=== PATIENT | male | born 1955 | race Caucasian/White ===

== ENCOUNTER 2019-02-15 03:46 | Inpatient (IN) | payer MEDICARE, OTHER ==
[~2019-02-15] VITALS: Ht 154.9 cm; Wt 68.0 kg
[~2019-02-15 03:46] MED LIST: HYDR473S47 PO; IBUP800T48 PO
[2019-02-15] MEDS ORDERED: SODIUM CHLORIDE 0.9% 1L BAG IV* STA (03:59)
--- NOTE | 2019-02-15 03:59 | ERD ---
ER Documentation Chief Complaint Chief Complaint fever x 2 days. had prostate biopsy 3 days ago, also c/o burning urination HPI The patient is a 63-year-old male, presenting to the ER because of fever and general body pain, dysuria, after he had a prostate biopsy 2 days ago. He denies headache, neck pain, chest pain, cough, dyspnea, abdominal pain, vomiting, diarrhea. He does not smoke nor drink Past medical history: Hypertension, chronic left lower extremity numbness Past surgical history: None ROS All systems reviewed and are negative except as per history of present illness. Medications Home Meds Active Scripts Ibuprofen* (Motrin*) 800 Mg Tab, 800 MG PO Q6H PRN for PAIN AND OR ELEVATED TEMP, #30 TAB Prov:WALLACE IRVIN MD 12/01/15 Hydrocodone/Homatropine Mbr* (Hycodan* Liq) 5 Ml Syrup, 5 ML PO Q4H PRN for COUGH, #4 OZ Prov:WALLACE IRVIN MD 12/01/15 Allergies Allergies: Coded Allergies: No Known Allergy (Unverified , 12/01/15) PMhx/Soc Hx Alcohol Use: No Hx Substance Use: No Hx Tobacco Use: No Physical Exam Vitals Vital Signs Date Temp Pulse Resp B/P (MAP) Pulse Ox O2 O2 Flow FiO2 Time Delivery Rate 02/15/19 101.4 04:25 02/15/19 102.2 101 20 150/88 96 03:51 (108) Physical Exam Const: No acute distress. Head: Atraumatic. Eyes: Normal Conjunctiva. ENT: Normal External Ears, Nose and Mouth. Neck: Full range of motion. No meningismus. Resp: Clear to auscultation bilaterally. Cardio: Regular rate and rhythm. Abd: Soft, non distended, normal bowel sounds, non tender. Skin: No petechiae or rashes. Back: No midline or flank tenderness. Ext: No cyanosis, or edema. Neur: Awake and alert. Minimal left lower extremity chronic weakness, no calf tenderness Psych: Normal Mood and Affect. Result Diagram: 02/15/19 0408 02/15/19 0407 Results 24 hrs Laboratory Tests Test 02/15/19 04:07 02/15/19 04:08 02/15/19 04:16 02/15/19 04:30 Prothrombin Time 13.4 Sec Prothrombin Time 1.0 Ratio INR 1.01 International Normalized Ratio Activated 26.5 Sec Partial Thrombop last Time Sodium Level 141 mmol/L Potassium Level 4.0 mmol/L Chloride Level 105 mmol/L Carbon Dioxide 25 mmol/L Level Anion Gap 11 Blood Urea 16 mg/dl Nitrogen Creatinine 0.87 mg/dl Est Glomerular > 60 mL/min Filtrat Rate mL/min Glucose Level 129 mg/dl Calcium Level 9.2 mg/dl Total Bilirubin 0.7 mg/dl Direct Bilirubin 0.00 mg/dl Indirect 0.7 mg/dl Bilirubin Aspartate Amino 32 IU/L Transf (AST/SGOT ) Alanine 35 IU/L Aminotransferase (ALT/SGPT) Alkaline 121 IU/L Phosphatase Troponin I < 0.012 ng/ml Total Protein 8.5 g/dl Albumin 4.5 g/dl Globulin 4.00 g/dl Albumin/Globulin 1.12 Ratio White Blood 12.8 10^3/ul Count Red Blood Count 4.41 10^6/ul Hemoglobin 14.1 g/dl Hematocrit 41.0 % Mean Corpuscular 93.0 fl Volume Mean Corpuscular 32.0 pg Hemoglobin Mean Corpuscular 34.4 g/dl Hemoglobin Mary [place] nt Red Cell 12.2 % Distribution Width Platelet Count 151 10^3/UL Mean Platelet 12.5 fl Volume Immature 0.300 % Granulocytes % Neutrophils % 79.4 % Lymphocytes % 11.0 % Monocytes % 8.8 % Eosinophils % 0.2 % Basophils % 0.3 % Nucleated Red 0.0 /100WBC Blood Cells % Immature 0.040 10^3/ul Granulocytes # Neutrophils # 10.2 10^3/ul Lymphocytes # 1.4 10^3/ul Monocytes # 1.1 10^3/ul Eosinophils # 0.0 10^3/ul Basophils # 0.0 10^3/ul Nucleated Red 0.0 10^3/ul Blood Cells # POC Venous 1.3 mmol/L Lactate Urine Color YELLOW Urine Clarity CLEAR Urine pH 5.0 Urine Specific 1.013 [place] Urine Ketones NEGATIVE mg/dL Urine Nitrite NEGATIVE mg/dL Urine Bilirubin NEGATIVE mg/dL Urine NEGATIVE mg/dL Urobilinogen Urine Leukocyte NEGATIVE Adali/ul Esterase Urine 2 /HPF Microscopic RBC Urine 15 /HPF Microscopic WBC Urine Hemoglobin 1+ mg/dL Urine Glucose NEGATIVE mg/dL Urine Total NEGATIVE mg/dl Protein Test 02/15/19 04:49 Bedside Urine pH 5.5 (LAB) Bedside Urine Negative Protein (LAB) Bedside Urine Negative Glucose (UA) Bedside Urine Negative Ketones (LAB) Bedside Urine Trace-intact Blood Bedside Urine Negative Nitrite (LAB) Bedside Urine Trace Leukocyte Estera se (L Current Medications Medications Dose Sig/Karen Start Time Status Last (Trade) Ordered Route PRN Stop Time Admin Dose Reason Admin Sodium 2,070 ml BOLUS OVER 2 02/15/19 Cancel Chloride HOURS STAT 03:59 (NS) IV* 02/15/19 04:00 650 mg ONCE ONCE 02/15/19 DC 02/15/19 Acetaminophen PO 04:30 04:25 (Tylenol 02/15/19 04:31 Tab) Ibuprofen 600 mg ONCE ONCE 02/15/19 (Motrin) PO 06:00 02/15/19 06:01 Sodium 2,070 ml @ BOLUS X1 02/15/19 Chloride 1,035 mls/hr ONCE IV 06:00 02/15/19 07:59 Piperacillin 100 ml @ ONCE ONCE 02/15/19 Sod/ 200 mls/hr IVPB 06:00 Tazobactam 02/15/19 06:29 Sod Procedures/[place] [id number] Radiology Main Line: [phone] DIAGNOSTIC IMAGING REPORT Patient: HOUSTON GODWIN : 1955 Age: 63 Sex: M MR #: [id number] DOS: 02/15/19 0359 Ordering MD: CORNELIA BRAXTON MD Location: E/R Room/Bed: PROCEDURE: CHEST - 1 VIEW CLINICAL INDICATION: 63-year-old male with shortness of breath and sepsis. TECHNIQUE: A single frontal AP portable view of the chest was performed. The images were reviewed on a PACS workstation. COMPARISON: None. FINDINGS: The cardiomediastinal silhouette is within normal limits. There is a shallow inspiration. There is no evidence for an infiltrate. There is no evidence for congestive heart failure. There is no evidence for pneumothorax. The osseous structures are intact. IMPRESSION: No evidence for active cardiopulmonary disease. .Siva Cao MD, Date Time Electronically viewed and signed by .Siva Cao MD, on 02/15/2019 05:42 .M/ CC: CORNELIA BRAXTON MD [phone] EKG: Read by emergency physician Rate/Rhythm: Normal Sinus Rhythm 89 beats/min QRS, ST, T-waves: No ST elevation, no T inversion Impression: Normal EKG MEDICAL MAKING DECISION: The patient is a 63-year-old male, presenting with acute SIRS. He has episodes of chills and tachycardic in the ER. He was treated with normal saline 30 mm/kg and Zosyn IV concerning for bacteremia, Motrin and Tylenol for fever The differential diagnoses considered include but are not limited to UTI, pneumonia, bacteremia, prostatitis Departure Diagnosis: Primary Impression: SIRS (systemic inflammatory response syndrome) Condition: Stable Comments I discussed the findings with the patient. I discussed the patient with Dr Larsen 5:45 am , who was made aware of the lab, the treatment, the patient condition. The patient is admitted to [facility] Disclaimer: Inadvertent spelling and grammatical errors are likely due to EHR/dictation software use and do not reflect on the overall quality of patient care. Also, please note that the electronic time recorded on this note does not necessarily reflect the actual time of the patient encounter. CORNELIA BRAXTON MD February 15, 2019 03:59
[2019-02-15] MEDS ORDERED: ACETAMINOPHEN 325 MG TAB PO ONE (04:30)
[2019-02-15] MEDS ORDERED: IBUPROFEN 600 MG TAB PO ONE (06:00)
[2019-02-15] MEDS ORDERED: SOD CHLORIDE 0.9% 2,070 ML IV ONE (06:00)
[2019-02-15] MEDS ORDERED: PIPER-TAZO 3.375 GM IV (PMX) 100 ML IVPB ONE (06:00)
[2019-02-15] MEDS ORDERED: ONDANSETRON 4 MG INJ IV PRN (09:30)
[2019-02-15] MEDS ORDERED: morphine 2 MG INJ IV PRN (09:30)
[2019-02-15 09:39] VITALS: BMI 24.9
[2019-02-15] MEDS ORDERED: ZOLPIDEM 5 MG TAB PO PRN (10:00)
[2019-02-15 11:17] VITALS: BP 121/76; PULSE 71; RESP 18
--- NOTE | 2019-02-15 11:38 | HP ---
DATE OF ADMISSION: 02/15/2019 ADMITTING DIAGNOSIS: Possible systemic inflammatory response syndrome with urinary tract infection. HISTORY OF PRESENT ILLNESS: The patient is a 63-year-old male with spina bifida, hypertension , gastroesophageal reflux disease who is status post prostate biopsy on 02/13/2019. The patient repo rts that he started having diffuse achiness, fevers and chills at home starting yesterday. The patie nt was taking Tylenol throughout yesterday and was having fevers upwards of 101 at home with palpitat ions and occasional shortness of breath. The patient initially had some bleeding with urination the first night and early yesterday, but has not had any blood since. Patient does have some burning wit h urination, has achiness particularly in the flank area and overall feels weak. REVIEW OF SYSTEMS: Palpitations, no nausea, no vomiting, no headache, no blurred vision. Mild light headedness. PAST MEDICAL HISTORY: Hypertension, spina bifida, gastroesophageal reflux disease, elevated PSA, sta tus post prostate biopsy 02/13/2019. PAST SURGICAL HISTORY: None. FAMILY HISTORY: Noncontributory. ALLERGIES: NONE. MEDICATIONS: 1. Omeprazole 20 mg daily. 2. Lisinopril 5 mg daily. 3. Flomax 0.4 mg daily. SOCIAL HISTORY: Patient is . No tobacco, no alcohol use. PHYSICAL EXAMINATION: VITAL SIGNS: Temperature 102.2 in the Emergency Room with a pulse of 101, respiratory rate 20, blood pressure 150/88, pulse oximetry of 96. Currently, the temperature is 99.8, pulse of 93, respiration s 17, blood pressure 127/80, oxygen saturation 97% on 2 liter nasal cannula oxygen. GENERAL: Well-developed, ill-appearing male in no acute distress, lying in bed. HEENT: EOMI, PERRLA. Oropharynx clear except for decreased mucus pooling. NECK: No jugular venous distention, 2+ carotid upstroke, no bruits. No lymphadenopathy, no thyromeg luis. LUNGS: Clear to auscultation bilaterally. HEART: Tachycardic, but regular. Normal S1, S2. No murmurs, gallops, rubs noted. ABDOMEN: Soft, nontender, normoactive bowel sounds. Mild obesity, no hepatosplenomegaly. No suprap ubic tenderness, no CVA tenderness. GENITOURINARY: Normal male. No masses. RECTAL: Deferred. EXTREMITIES: No cyanosis, clubbing or edema. NEUROLOGIC: Nonfocal. Midline back and lumbar spine, there is an approximately 8:10 cm tail-like fl eshy mass emanating from the lumbar spine. LABORATORY EXAMINATION: White blood cell count 12.8 with 79.4% neutrophils, hemoglobin 14.1, hematoc rit 41.0, platelets 151. Sodium 141, potassium 4.0, chloride 105, bicarbonate 25, BUN of 16, creatin ine 0.87, glucose 129. Lactic acid 2.8, calcium 9.2, total bilirubin 0.7, AST 32, ALT of 35, alkalin e phosphatase 121. Troponin less than 0.012. Total protein is 8.5, albumin 4.5. PT 13.4, INR 1.01, PTT of 26.5. Urinalysis shows pH of 5.5, no protein, no glucose, trace intact blood, negative nitri te, negative leukocyte esterase. There is leukocyte esterase trace positivity, 15 white blood cells, 2 red blood cells, 1+ hemoglobin. Chest x-ray is unremarkable. IMPRESSION: The patient is a 63-year-old male status post prostate biopsy on , now with fevers, chills, burning with urination, elevated white count and elevated lactic acid, tachycardia, lightheadedness. The patient is being admitted to the hospital for possible urinary tra ct infection with systemic inflammatory response syndrome. 1. Urinary tract infection with systemic inflammatory response syndrome. The patient will be placed on IV antibiotics with Zosyn 3.375 mg q.6h. Will await urine culture results and adjust as necessar y. We will also give IV fluid hydration with normal saline at 100 mL per hour. We will give p.r.n. pain medications with morphine and Tylenol or ibuprofen for fever and myalgias. Will also repeat a la ctic acid later today as well as a repeat white blood cell count and lactic acid tomorrow. 2. Hypertension. We will give routine lisinopril as well as p.r.n. hydralazine. 3. Gastroesophageal reflux disease. Will continue with diet and pantoprazole and replacement for hi s omeprazole. 4. Benign prostatic hypertrophy. We will give the patient Flomax as he took at home. Dictated By: RASHIDA URENA MD SR/NTS Conf#: [id number] DID#: [id number] CC: JET DUMONT MD;*EndCC*
[2019-02-15 12:01] VITALS: PULSE 73
[2019-02-15] MEDS: SOD CHLORIDE 0.9% 1,000 ML IV SCH ×2 (12:35→20:30)
[2019-02-15] MEDS: PANTOPRAZOLE (EC) 40 MG TAB PO SCH (12:36)
[2019-02-15] MEDS: LISINOPRIL 5 MG TAB GTB SCH (12:37)
[2019-02-15] MEDS: ACETAMINOPHEN 325 MG TAB PO PRN ×4 (12:47→22:56)
[2019-02-15] MEDS: PIPER-TAZO 3.375 GM IV (PMX) 100 ML IVPB SCH ×3 (12:50→23:43)
[2019-02-15 15:27] VITALS: BP 129/82; PULSE 72; RESP 18
[2019-02-15 16:01] VITALS: PULSE 71
[2019-02-15 19:34] VITALS: BP 163/85; PULSE 78; RESP 18
[2019-02-15 20:00] VITALS: PULSE 76
[2019-02-15] MEDS: TAMSULOSIN (SR) 0.4 MG CAP PO SCH (20:55)
[2019-02-16] VITALS (13 sets, daily range): BP systolic 102–121; BP diastolic 64–72; PULSE 43–71; RESP 17–18
[2019-02-16] MEDS: ACETAMINOPHEN 325 MG TAB PO PRN ×3 (02:54→17:31)
[2019-02-16] MEDS: PIPER-TAZO 3.375 GM IV (PMX) 100 ML IVPB SCH ×3 (05:45→17:30)
[2019-02-16] MEDS: SOD CHLORIDE 0.9% 1,000 ML IV SCH ×2 (05:45→17:31)
[2019-02-16] MEDS: PANTOPRAZOLE (EC) 40 MG TAB PO SCH (05:45)
[2019-02-16] MEDS: LISINOPRIL 5 MG TAB GTB SCH (08:37)
--- NOTE | 2019-02-16 11:56 | RADRPT ---
Vent Rate: 89 bpm RR Interval: 0 msec WA Interval: 162 msec QRS Duration: 74 msec QT Interval: 330 msec QTC Interval: 401 msec P-R-T [place]: 44 - 17 - 9 degrees Normal sinus rhythm Normal ECG Electronically Signed By: *[facility]
[2019-02-16] MEDS: IBUPROFEN 400 MG TAB GTB PRN ×2 (14:12→21:38)
--- NOTE | 2019-02-16 16:33 | PN ---
DATE: 02/16/2019 SUBJECTIVE: The patient is feeling better but still having some headache, but no more flank pain and no more chills. OBJECTIVE: VITAL SIGNS: Temperature 98.1 currently, T-max at 1:00 this morning was 99.6, pulse currently 63, re spirations 18, blood pressure 102/66, oxygen saturation 95% on room air. GENERAL: Well-developed, well-nourished male in no acute distress, lying in bed. LUNGS: Clear to auscultation bilaterally. HEART: Regular rate and rhythm. ABDOMEN: Soft, nontender, nondistended, mild obesity, normoactive bowel sounds. No CVA tenderness. EXTREMITIES: No cyanosis, clubbing or edema. NEUROLOGIC: Nonfocal. LABORATORY EXAMINATION: Shows white blood cell count of 15.1, hemoglobin 12.6, hematocrit 36.9, plat elets 116. Sodium is 138, potassium 3.8, chloride 109, bicarbonate 24, BUN 13, creatinine 0.87, gluc ose 111. Lactic acid 0.89. Magnesium 2.1, calcium 8.5. Blood cultures 1 out of 2 showing gram-nega tive rods. ASSESSMENT AND PLAN: 1. Urinary tract infection with systemic inflammatory response syndrome. The patient is now afebril e, but white blood cell count still elevated, but pulse rate is controlled and patient is feeling bet ter with no more fevers, chills. The patient does have gram-negative rods in 1 of 2 blood cultures w hich would be consistent with the patient's urine infection. White blood cell count is still elevate d and the patient is currently responding to antibiotics. We will wait for sensitivity and typing of the gram-negative rods, but continue current antibiotics with Zosyn, IV fluids and p.r.n. Tylenol, i buprofen and analgesics. 2. Hypertension, stable. Continue with meds and p.r.n. meds. 3. Headache, likely related to patient's infection. We will continue with p.r.n. analgesia and cont inue to treat the infection, but doubt other processes at hand. Dictated By: RASHIDA URENA MD SR/NTS Conf#: [id number] DID#: [id number] CC: JET DUMONT MD;*EndCC*
[2019-02-16] MEDS: TAMSULOSIN (SR) 0.4 MG CAP PO SCH (21:34)
[2019-02-17] VITALS (11 sets, daily range): BP systolic 102–181; BP diastolic 61–94; PULSE 51–78; RESP 18–20
[2019-02-17] MEDS: PIPER-TAZO 3.375 GM IV (PMX) 100 ML IVPB SCH ×4 (00:03→17:45)
[2019-02-17] MEDS: SOD CHLORIDE 0.9% 1,000 ML IV SCH ×3 (02:30→22:30)
[2019-02-17] MEDS: PANTOPRAZOLE (EC) 40 MG TAB PO SCH (05:50)
[2019-02-17] MEDS: LISINOPRIL 5 MG TAB GTB SCH (08:49)
--- NOTE | 2019-02-17 09:07 | PN ---
DATE: 02/17/2019 SUBJECTIVE: The patient is feeling better. No headache, no back pain, but did have some chills and sweats last night. OBJECTIVE: VITAL SIGNS: Temperature 98.0, pulse 54, respirations 20, blood pressure 139/83, oxygen saturation 96% on room air. GENERAL: Well-developed, well-nourished male in no acute distress, lying in bed. LUNGS: Clear to auscultation bilaterally. HEART: Regular rate and rhythm. ABDOMEN: Soft, nontender, nondistended, normoactive bowel sounds. EXTREMITIES: No cyanosis, clubbing or edema. LABORATORY DATA: Urine cultures show 50 to 60,000 gram-negative rods. Blood cultures x1 show gram-negative rods, but no typing or sensitivities yet. White blood cell count 7.2, hemoglobin 12.4, hematocrit 36.6, platelets 108. Sodium 144, potassium 3.9, chloride 114, bicarbonate 23, BUN of 13, creatinine 0.8, blood sugar 113. ASSESSMENT AND PLAN: 1. Urinary tract infection with Sepsis(POA): The patient continues to improve, with a normal white blood cell count, no more fevers or chills. The patient is improving clinically overall. We will continue IV antibiotics as the patient continues to remain weak and we will continue telemetry monitoring. The patient will be continued on IV antibiotics and we will adjust as needed and change to oral antibiotics prior to discharge. 2. Tachycardia, improved with hydration and controlling the infection. We will continue telemetry monitoring for now. 3. Hypertension, stable. Continue with medications and diet. 4. Gastroesophageal reflux disease, stable. Continue with medications. Dictated By: RASHIDA URENA MD SR/NTS Conf#: [id number] DID#: [id number] CC: JET DUMNOT MD;*EndCC* MTDD
[2019-02-17] MEDS: ACETAMINOPHEN 325 MG TAB PO PRN (15:17)
[2019-02-17] MEDS: TAMSULOSIN (SR) 0.4 MG CAP PO SCH (21:38)
[2019-02-17] MEDS: hydrALAzine 20 MG INJ IV PRN (21:39)
[2019-02-18] VITALS (10 sets, daily range): BP systolic 131–161; BP diastolic 77–94; PULSE 54–76; RESP 18–20
[2019-02-18] MEDS: PIPER-TAZO 3.375 GM IV (PMX) 100 ML IVPB SCH ×5 (00:07→23:59)
[2019-02-18] MEDS: IBUPROFEN 400 MG TAB GTB PRN ×3 (00:14→16:09)
[2019-02-18] MEDS: PANTOPRAZOLE (EC) 40 MG TAB PO SCH (05:42)
[2019-02-18] MEDS: SOD CHLORIDE 0.9% 1,000 ML IV SCH (05:43)
[2019-02-18] MEDS ORDERED: POTASSIUM CHLORIDE (SR) 20 MEQ TAB PO STA (08:19)
[2019-02-18] MEDS: LISINOPRIL 5 MG TAB GTB SCH (08:21)
[2019-02-18] MEDS: MULTIVITAMINS THERAPEUTIC TAB PO SCH (08:36)
--- NOTE | 2019-02-18 09:07 | PN ---
DATE: 02/18/2019 SUBJECTIVE: The patient complains of intermittent headache, still feeling very weak. No abdominal p ain. OBJECTIVE: VITAL SIGNS: Temperature 98.2, pulse 56, respirations 20, blood pressure 131/77, oxygen saturation 9 8%, blood pressure was as high as 180/91 earlier last night. LUNGS: Clear to auscultation bilaterally. HEART: Regular rate and rhythm. ABDOMEN: Soft, nontender, nondistended. NECK: Decreased range of motion. There is tenderness to palpation along the cervical spine. Otherw ise, nonfocal. EXTREMITIES: No cyanosis, clubbing or edema. LABORATORY DATA: White blood cell count 7.2, hemoglobin 12.7, hematocrit 37.0, platelets 136. Sodiu m 145, potassium 3.4, chloride 110, bicarbonate 25, BUN of 10, creatinine 0.82, glucose 107, calcium 8.7. Urine culture and blood culture both show E. coli sensitive to antibiotics. ASSESSMENT AND PLAN: 1. Urinary tract infection with sepsis. The patient continues to improve, but is not ready for disc harge to home. The patient continues to feel weak. We will continue with IV antibiotics, telemetry monitoring. 2. Hypertension/tachycardia. Tachycardia is improved. The patient with labile blood pressure. We will continue telemetry monitoring. Discontinue IV fluids and continue with blood pressure medicatio ns and p.r.n. 3. Gastroesophageal reflux disease, stable. Continue with medications. 4. Hypopotassemia. We will replace with 40 mEq with potassium chloride and recheck tomorrow includi ng magnesium. Dictated By: RASHIDA URENA MD SR/NTS Conf#: [id number] DID#: [id number] CC: JET DUMONT MD;*EndCC*
[2019-02-18] MEDS: ACETAMINOPHEN 325 MG TAB PO PRN ×2 (12:09→20:44)
[2019-02-18] MEDS: TAMSULOSIN (SR) 0.4 MG CAP PO SCH (20:42)
[2019-02-19] VITALS (11 sets, daily range): BP systolic 129–166; BP diastolic 77–90; PULSE 45–71; RESP 18–22
[2019-02-19] MEDS: IBUPROFEN 400 MG TAB GTB PRN ×3 (00:16→20:10)
[2019-02-19] MEDS: PANTOPRAZOLE (EC) 40 MG TAB PO SCH (05:35)
[2019-02-19] MEDS: PIPER-TAZO 3.375 GM IV (PMX) 100 ML IVPB SCH ×3 (05:35→19:49)
--- NOTE | 2019-02-19 08:37 | PN ---
DATE: 02/19/2019 SUBJECTIVE: The patient continues to complain of intermittent headaches and sweats, but otherwise no dysuria. No back pain, no chills. OBJECTIVE: VITAL SIGNS: Temperature 98.1, pulse 66 to 46, but asymptomatic, respirations 18, blood pressure 134/78 but earlier this morning was 166/90. The patient had a headache. LUNGS: Clear to auscultation bilaterally. HEART: Regular rate and rhythm but bradycardic. ABDOMEN: Soft, nontender, nondistended. EXTREMITIES: No cyanosis, clubbing or edema. NEUROLOGIC: Nonfocal. LABORATORY DATA: Sodium 144, potassium 4.0, chloride 111, bicarbonate 24, BUN 13, creatinine 0.81, glucose 140, magnesium 2.3, hemoglobin 12.3, hematocrit 36.2, white blood cell count 6.6, platelets 156. ASSESSMENT AND PLAN: 1. Urinary tract infection with sepsis. The patient continues to improve. We will continue IV antibiotics and change to oral medications at the time of discharge. 2. Tachycardia/hypertension. The patient continues to be hypertensive with intermittent headaches related to hypertension. We will adjust his lisinopril and change the threshold for the hydralazine as a p.r.n. The patient no longer with tachycardia and has asymptomatic bradycardia times. 3. Gastroesophageal reflux disease, stable. Continue with diet and medications. 4. Headache:pt with intermittent h/a of unknown etiol; may be related to htn vs other; if persists, will check CT brain Dictated By: RASHIDA URENA MD SR/NTS Conf#: [id number] DID#: [id number] CC: JET DUMONT MD;*EndCC* MTDD
[2019-02-19] MEDS: LISINOPRIL 20 MG TAB GTB SCH (09:43)
[2019-02-19] MEDS: MULTIVITAMINS THERAPEUTIC TAB PO SCH (09:43)
[2019-02-19] MEDS: ACETAMINOPHEN 325 MG TAB PO PRN ×2 (09:53→14:57)
[2019-02-19] MEDS: hydrALAzine 20 MG INJ IV PRN (10:59)
[2019-02-19] MEDS: TAMSULOSIN (SR) 0.4 MG CAP PO SCH (21:11)
[2019-02-20] VITALS (10 sets, daily range): BP systolic 147–159; BP diastolic 60–91; PULSE 51–79; RESP 18–19
[2019-02-20] MEDS: PIPER-TAZO 3.375 GM IV (PMX) 100 ML IVPB SCH ×5 (00:33→23:45)
[2019-02-20] MEDS: ACETAMINOPHEN 325 MG TAB PO PRN ×3 (00:50→21:58)
[2019-02-20] MEDS: PANTOPRAZOLE (EC) 40 MG TAB PO SCH (06:07)
[2019-02-20] MEDS: IBUPROFEN 400 MG TAB GTB PRN ×3 (06:17→19:29)
[2019-02-20] MEDS ORDERED: FUROSEMIDE 20 MG INJ IV ONE (08:30)
--- NOTE | 2019-02-20 08:40 | PN ---
DATE: 02/20/2019 SUBJECTIVE: The patient continues to complain of moderate to severe headache intermittently but a lo w grade all the time. Hurts with a range of motion of his neck as well. Otherwise without complaint . OBJECTIVE: VITAL SIGNS: Temperature 98.3, pulse 51 and regular, respirations 19, blood pressure is high as 166/ 80 yesterday, this morning 151/60 with an oxygen saturation 98%. GENERAL: Well-developed, well-nourished male in no acute distress. LUNGS: Clear to auscultation bilaterally. HEART: Regular rate and rhythm. NECK: Decreased range of motion in all directions with pain at extremes of range of motion. There i s tenderness to palpation along the cervical spine and in the occiput bilaterally. NEUROLOGIC: Nonfocal. ABDOMEN: Soft, nontender, normoactive bowel sounds. LABORATORY DATA: Sodium 143, potassium 3.8, chloride 110, bicarbonate 23, BUN 13, creatinine 0.77, g lucose 104, calcium 9.0. White blood cell count 8.4, hemoglobin 13.2, hematocrit 38.1, platelets [address] scan of the brain is unremarkable. ASSESSMENT AND PLAN: 1. UTI with sepsis. The patient continues to improve and will continue antibiotics IV 2. Headache. The patient continues to have moderate to severe headaches of unknown etiology. Likel y combination of cervical spondylosis strain along with hypertension. The patient's hypertension con tinues to be labile and the patient's medications were adjusted yesterday. The patient was receiving IV normal saline and his pressure increased while on that. Will give a dose of Lasix x1 today to ho pefully relieve some of the hypertension as well as headache and will continue telemetry monitoring, 3. Tachycardia/hypertension. Tachycardia is improved but hypertension remains labile. We will cont inue with the Lasix added today as well as the lisinopril increased yesterday and the p.r.n. hydralaz ine. 4. GERD, stable. Continue with medications. Dictated By: RASHIDA URENA MD SR/NTS Conf#: [id number] DID#: [id number] CC: JET DUMONT MD;*EndCC*
[2019-02-20] MEDS: MULTIVITAMINS THERAPEUTIC TAB PO SCH (09:21)
[2019-02-20] MEDS: LISINOPRIL 20 MG TAB GTB SCH (09:21)
[2019-02-20] MEDS: TAMSULOSIN (SR) 0.4 MG CAP PO SCH (21:58)
[2019-02-21] VITALS (10 sets, daily range): BP systolic 130–185; BP diastolic 74–94; PULSE 48–63; RESP 16–18; Ht 154.9 cm; Wt 68.0 kg
[2019-02-21] MEDS: PIPER-TAZO 3.375 GM IV (PMX) 100 ML IVPB SCH ×4 (06:20→23:26)
[2019-02-21] MEDS: PANTOPRAZOLE (EC) 40 MG TAB PO SCH (06:20)
[2019-02-21] MEDS: IBUPROFEN 400 MG TAB GTB PRN ×3 (06:20→21:51)
[2019-02-21] MEDS: MULTIVITAMINS THERAPEUTIC TAB PO SCH (08:26)
[2019-02-21] MEDS: LISINOPRIL 20 MG TAB GTB SCH (08:26)
[2019-02-21] MEDS ORDERED: FUROSEMIDE 20 MG INJ IV ONE (08:30)
--- NOTE | 2019-02-21 08:38 | PN ---
DATE: 02/21/2019 SUBJECTIVE: The patient continues to have headache, not feeling well enough at this time and continu es to feel weak. OBJECTIVE: VITAL SIGNS: Temperature 98.2, pulse 48, asymptomatic, respirations 18, blood pressure 160/91, oxyge n saturation 97% on room air. GENERAL: Well-developed, well-nourished male in no acute distress, lying in bed. NECK: Mild to moderate tenderness along the cervical spine. Decreased range of motion and pain with range of motion. LUNGS: Clear to auscultation bilaterally. HEART: Bradycardic but regular. ABDOMEN: Soft, nontender, nondistended. EXTREMITIES: No cyanosis, clubbing or edema. NEUROLOGIC: Nonfocal. LABORATORY DATA: Sodium 145, potassium 5.0, chloride 109, bicarbonate 29, BUN of 17, creatinine 0.91 , glucose 101. Magnesium 2.4, hemoglobin 12.4, hematocrit 37.0, platelets 220, white blood cell coun t 8.0 ASSESSMENT AND PLAN: 1. Urinary tract infection with sepsis. The patient continues to improve slowly and will continue I V antibiotics. The patient is nearing ready for discharge., we will discharge patient on ciprofloxac in as he has had dizziness with Levaquin but has been fine with Cipro in the past. 2. Hypertension, continues to be labile. Will continue to adjust medications and give a dose of [place] today to help this patient likely with some hypertension related to the IV fluids he received. 3. Headache persists, likely a combination of neck as well as his high blood pressure. We will use a heating pad and continue with p.r.n. Motrin and Tylenol 4. Gastroesophageal reflux disease, stable . Continue with medications. 5. Discharge plan: The patient will remain in the hospital. We will continue to adjust meds and tr y to control blood pressure better as well as the patient's headache. Dictated By: RASHIDA URENA MD SR/NTS Conf#: [id number] DID#: [id number] CC: JET DUMONT MD;*EndCC*
[2019-02-21] MEDS: ACETAMINOPHEN 325 MG TAB PO PRN (12:16)
[2019-02-21] MEDS: hydrALAzine 20 MG INJ IV PRN (16:03)
[2019-02-21] MEDS: TAMSULOSIN (SR) 0.4 MG CAP PO SCH (21:50)
[2019-02-22] VITALS (10 sets, daily range): BP systolic 142–163; BP diastolic 81–88; PULSE 52–70; RESP 17–19
[2019-02-22] MEDS: IBUPROFEN 400 MG TAB GTB PRN ×3 (03:29→20:41)
[2019-02-22] MEDS: PIPER-TAZO 3.375 GM IV (PMX) 100 ML IVPB SCH ×3 (05:56→17:24)
[2019-02-22] MEDS: PANTOPRAZOLE (EC) 40 MG TAB PO SCH (05:56)
[2019-02-22] MEDS: ACETAMINOPHEN 325 MG TAB PO PRN (05:57)
[2019-02-22] MEDS: LISINOPRIL 20 MG TAB GTB SCH (08:44)
[2019-02-22] MEDS: MULTIVITAMINS THERAPEUTIC TAB PO SCH (08:44)
--- NOTE | 2019-02-22 15:29 | PN ---
Date/Time of Note Date/Time of Note DATE: 02/22/19 TIME: 15:26 Assessment/Plan VTE Prophylaxis Risk score (from Ns)>0 risk: 6 SCD applied (from Ns): Yes Pharmacological prophylaxis: NA/contraindicated Pharm contraindication: low risk/ambulating Lines/Catheters [facility] C[facility]from [facility] Saline Lock Urinary Cath still in place: No Assessment/Plan Assessment/Plan 1. Urinary tract infection with sepsis. The patient continues to improve and will discontinue IV antibiotics today after 7 days. The patient is nearing ready for discharge. Plan to start patient on ciprofloxacin tomorrow for discharge to home as he has had dizziness with Levaquin but has been fine with Cipro in the past. 2. Hypertension, Improved today but still remains elevated Will continue to adjust medications and increase lisinopril to 40mg qd. 3. Headache persists, likely related to his high blood pressure. We will use a heating pad and continue with p.r.n. Tylenol 4. Gastroesophageal reflux disease, stable. Continue with medications. 5. Discharge plan: The patient will remain in the hospital today. Plan discharge to home tomorrow if his blood pressure and headache is better. Result Diagram: 02/21/19 0526 02/22/19 0501 Results 24hrs Laboratory Tests Test 02/22/19 05:01 Sodium Level 144 Potassium Level 4.0 Chloride Level 107 Carbon Dioxide Level 28 Anion Gap 9 Blood Urea Nitrogen 17 Creatinine 0.84 Est Glomerular Filtrat Rate mL/min > 60 Glucose Level 97 Calcium Level 9.0 Magnesium Level 2.5 Subjective 24 Hr Interval Summary Free Text/Dictation Patient reports less headache today since his bp has been ranging in the 140's Exam/Review of Systems Exam Vitals Vital Signs Date Temp Pulse Resp B/P (MAP) Pulse Ox O2 O2 Flow FiO2 Time Delivery Rate 02/22/19 98.1 67 19 142/84 98 12:27 (103) 02/19/19 Room Air 16:12 Intake and Output 02/21/19 02/21/19 02/22/19 1515:00 23:00 07:00 IntakeIntake Total 100 ml 950 ml 1000 ml BalanceBalance 100 ml 950 ml 1000 ml Constitutional: alert Psych: no complaints Head: normocephalic, atraumatic ENMT: nl external ears & nose Respiratory: clear to auscultation Cardiovascular: regular rate and rhythm Gastrointestinal: soft, non-tender Musculoskeletal: nl extremities to inspection Results Results 24hrs Laboratory Tests Test 02/22/19 05:01 Sodium Level 144 Potassium Level 4.0 Chloride Level 107 Carbon Dioxide Level 28 Anion Gap 9 Blood Urea Nitrogen 17 Creatinine 0.84 Est Glomerular Filtrat Rate mL/min > 60 Glucose Level 97 Calcium Level 9.0 Magnesium Level 2.5 Medications Medication Current Medications Piperacillin Sod/ Tazobactam Sod 100 ml @ 200 mls/hr Q6 IVPB Last administered on 02/22/19 11:19; Admin Dose 200 MLS/HR; Start 02/15/19 at 12:00 Morphine Sulfate (morphine) 2 mg Q4H PRN IV SEVERE PAIN LEVEL 7-10; Start at 09:30 Ondansetron HCl (Zofran Inj) 4 mg Q4H PRN IV NAUSEA AND/OR VOMITING; Start 02/15/19 at 09:30 Pantoprazole (Protonix Tab) 40 mg DAILY@06 PO Last administered on 02/22/19 05:56; Admin Dose 40 MG; Start 02/15/19 at 10:00 Acetaminophen (Tylenol Tab) 650 mg Q6H PRN PO MILD PAIN(1-3)OR ELEVATED TEMP Last administered on 02/22/19 05:57; Admin Dose 650 MG; Start 02/15/19 at 10:00 Hydralazine HCl (Apresoline) 5 mg Q6H PRN IV sbp>165 or dbp>95 Last administered on 02/21/19 16:03; Admin Dose 5 MG; Start 02/15/19 at 10:00 Zolpidem Tartrate (Ambien) 5 mg HS MAY REPEAT X 1 PRN PO INSOMNIA; Start 02/15/19 at 10:00 Tamsulosin HCl (Flomax) 0.4 mg HS PO Last administered on 02/21/19 21:50; Admin Dose 0.4 MG; Start 02/15/19 at 21:00 Ibuprofen (Motrin) 400 mg Q6H PRN GTB MILD PAIN LEVEL 1-3 Last administered on 02/22/19 11:24; Admin Dose 400 MG; Start 02/16/19 at 07:30 Multivitamins Therapeutic (Theragran) 1 tab DAILY PO Last administered on 5/25/19at 08:44; Admin Dose 1 TAB; Start 02/18/19 at 09:00 Lisinopril (Zestril) 20 mg DAILY GTB Last administered on 02/22/19at 08:44; A dmin Dose 20 MG; Start 02/19/19 at 09:00 OSIEL MONTES MD February 22, 2019 15:29
[2019-02-22] MEDS: CIPROFLOXACIN 500 MG TAB PO SCH (18:43)
[2019-02-22] MEDS: TAMSULOSIN (SR) 0.4 MG CAP PO SCH (20:42)
[2019-02-23] VITALS (12 sets, daily range): BP systolic 134–165; BP diastolic 78–99; PULSE 52–69; RESP 17–18
[2019-02-23] MEDS: PANTOPRAZOLE (EC) 40 MG TAB PO SCH (05:28)
[2019-02-23] MEDS: CIPROFLOXACIN 500 MG TAB PO SCH ×2 (05:28→17:20)
[2019-02-23] MEDS: ACETAMINOPHEN 325 MG TAB PO PRN (05:29)
[2019-02-23] MEDS: MULTIVITAMINS THERAPEUTIC TAB PO SCH (08:43)
[2019-02-23] MEDS: LISINOPRIL 20 MG TAB PO SCH (08:43)
[2019-02-23] MEDS: TAMSULOSIN (SR) 0.4 MG CAP PO SCH (20:51)
[2019-02-24] VITALS (13 sets, daily range): BP systolic 124–175; BP diastolic 73–94; PULSE 55–78; RESP 18
--- NOTE | 2019-02-24 00:48 | PN ---
Date/Time of Note Date/Time of Note DATE: 02/24/19 TIME: 00:41 Assessment/Plan VTE Prophylaxis Risk score (from Ns)>0 risk: 3 SCD applied (from [facility]): No SCD contraindicated: low risk/ambulating Pharmacological prophylaxis: NA/contraindicated Pharm contraindication: low risk/ambulating Lines/Catheters IV C[facility] Type (from [facility] Saline Lock Urinary Cath still in place: No Assessment/Plan Result Diagram: 02/23/1951802/23/19518 Results 24hrs Laboratory Tests Test 02/23/19 05:19 White Blood Count 9.6 Red Blood Count 3.93 L Hemoglobin 12.8 L Hematocrit 40.0 L Mean Corpuscular Volume 101.8 H Mean Corpuscular Hemoglobin 32.6 Mean Corpuscular Hemoglobin Concent 32.0 Red Cell Distribution Width 13.7 Platelet Count 270 # Mean Platelet Volume 11.3 H Immature Granulocytes % 1.100 H Neutrophils % 57.4 Lymphocytes % 27.9 Monocytes % 10.9 Eosinophils % 2.1 Basophils % 0.6 Nucleated Red Blood Cells % 0.0 Immature Granulocytes # 0.110 H Neutrophils # 5.5 Lymphocytes # 2.7 Monocytes # 1.1 H Eosinophils # 0.2 Basophils # 0.1 Nucleated Red Blood Cells # 0.0 Sodium Level 144 Potassium Level 4.2 Chloride Level 109 Carbon Dioxide Level 25 Anion Gap 10 Blood Urea Nitrogen 18 Creatinine 0.77 Est Glomerular Filtrat Rate mL/min > 60 Glucose Level 120 Calcium Level 9.0 Subjective 24 Hr Interval Summary Free Text/Dictation patient still has headache earlier on today when his blood pressure went above 160. Family is concerned about what to do if his blood pressure goes high when he gets home. Exam/Review of Systems Exam Vitals Vital Signs Date Temp Pulse Resp B/P (MAP) Pulse Ox O2 O2 Flow FiO2 Time Delivery Rate 02/24/19 98.4 71 18 167/94 97 00:07 (118) 02/23/19 Room Air 12:51 Intake and Output 02/23/19 02/23/19 02/24/19 1515:00 23:00 07:00 IntakeIntake Total 1800 ml BalanceBalance 1800 ml Exam patient appears awake and alert. Constitutional: alert Head: normocephalic, atraumatic ENMT: nl external ears & nose Respiratory: clear to auscultation Cardiovascular: regular rate and rhythm Musculoskeletal: nl extremities to inspection Results Results 24hrs Laboratory Tests Test 02/23/19 05:19 White Blood Count 9.6 Red Blood Count 3.93 L Hemoglobin 12.8 L Hematocrit 40.0 L Mean Corpuscular Volume 101.8 H Mean Corpuscular Hemoglobin 32.6 Mean Corpuscular Hemoglobin Concent 32.0 Red Cell Distribution Width 13.7 Platelet Count 270 # Mean Platelet Volume 11.3 H Immature Granulocytes % 1.100 H Neutrophils % 57.4 Lymphocytes % 27.9 Monocytes % 10.9 Eosinophils % 2.1 Basophils % 0.6 Nucleated Red Blood Cells % 0.0 Immature Granulocytes # 0.110 H Neutrophils # 5.5 Lymphocytes # 2.7 Monocytes # 1.1 H Eosinophils # 0.2 Basophils # 0.1 Nucleated Red Blood Cells # 0.0 Sodium Level 144 Potassium Level 4.2 Chloride Level 109 Carbon Dioxide Level 25 Anion Gap 10 Blood Urea Nitrogen 18 Creatinine 0.77 Est Glomerular Filtrat Rate mL/min > 60 Glucose Level 120 Calcium Level 9.0 Medications Medication Current Medications Morphine Sulfate (morphine) 2 mg Q4H PRN IV SEVERE PAIN LEVEL 7-10; Start 02/15/19 at 09:30 Ondansetron HCl (Zofran Inj) 4 mg Q4H PRN IV NAUSEA AND/OR VOMITING; Start 02/15/19 at 09:30 Pantoprazole (Protonix Tab) 40 mg DAILY@06 PO Last administered on 02/23/19at 05:28; Admin Dose 40 MG; Start 02/15/19 at 10:00 Acetaminophen (Tylenol Tab) 650 mg Q6H PRN PO MILD PAIN(1-3)OR ELEVATED TEMP Last administered on 02/23/19at 05:29; Admin Dose 650 MG; Start 02/15/19 at 10:00 Hydralazine HCl (Apresoline) 5 mg Q6H PRN IV sbp>165 or dbp>95 Last administered on 02/21/19at 16:03; Admin Dose 5 MG; Start 02/15/19 at 10:00 Zolpidem Tartrate (Ambien) 5 mg HS MAY REPEAT X 1 PRN PO INSOMNIA; Start 02/15/19 at 10:00 Tamsulosin HCl (Flomax) 0.4 mg HS PO Last administered on 02/23/19at 20:51; Admin Dose 0.4 MG; Start 02/15/19 at 21:00 Ibuprofen (Motrin) 400 mg Q6H PRN GTB MILD PAIN LEVEL 1-3 Last administered on 02/22/19at 20:41; Admin Dose 400 MG; Start 02/16/19 at 07:30 Multivitamins Therapeutic (Theragran) 1 tab DAILY PO Last administered on 02/23/19at 08:43; Admin Dose 1 TAB; Start 02/18/19 at 09:00 Lisinopril (Zestril) 40 mg DAILY PO Last administered on 02/23/19at 08:43; Admin Dose 40 MG; Start 02/23/19 at 09:00 Ciprofloxacin (Cipro) 500 mg BID@06,18 PO Last administered on 02/23/19at 17:20; Admin Dose 500 MG; Start 02/22/19 at 18:30 OSIEL MONTES MD February 24, 2019 00:48
[2019-02-24] MEDS: IBUPROFEN 400 MG TAB GTB PRN ×4 (00:55→22:38)
[2019-02-24] MEDS: CIPROFLOXACIN 500 MG TAB PO SCH ×2 (05:54→18:20)
[2019-02-24] MEDS: PANTOPRAZOLE (EC) 40 MG TAB PO SCH (05:54)
[2019-02-24] MEDS: LISINOPRIL 20 MG TAB PO SCH (08:24)
[2019-02-24] MEDS: MULTIVITAMINS THERAPEUTIC TAB PO SCH (08:24)
[2019-02-24] MEDS: HYDROCHLOROTHIAZIDE 12.5 MG CAP PO SCH (08:24)
[2019-02-24] MEDS: TAMSULOSIN (SR) 0.4 MG CAP PO SCH (21:13)
[2019-02-24] MEDS: hydrALAzine 20 MG INJ IV PRN (21:15)
[2019-02-25] VITALS (13 sets, daily range): BP systolic 115–169; BP diastolic 74–88; PULSE 56–82; RESP 18
[2019-02-25] MEDS: IBUPROFEN 400 MG TAB GTB PRN ×2 (04:33→13:47)
[2019-02-25] MEDS: PANTOPRAZOLE (EC) 40 MG TAB PO SCH (06:54)
[2019-02-25] MEDS: MULTIVITAMINS THERAPEUTIC TAB PO SCH (09:00)
[2019-02-25] MEDS: LISINOPRIL 20 MG TAB PO SCH ×2 (09:00→21:30)
[2019-02-25] MEDS: HYDROCHLOROTHIAZIDE 12.5 MG CAP PO SCH (09:01)
--- NOTE | 2019-02-25 09:06 | PN ---
DATE: 02/25/2019 SUBJECTIVE: The patient continues to have intermittent headaches, especially when blood pressure has been elevated. Otherwise, the patient feels fine. OBJECTIVE: VITAL SIGNS: Currently temperature 98.3, pulse of 59, blood pressure 130/78, oxygen saturation 97% o n room air, earlier in the day blood pressure was as high as 175/89. GENERAL: Well-developed, well-nourished male, in no acute distress. LUNGS: Clear to auscultation bilaterally. HEART: Regular rate and rhythm. ABDOMEN: Soft, nontender, nondistended. NEUROLOGIC: Nonfocal. LABORATORY DATA: None from today. ASSESSMENT AND PLAN: 1. Hypertension remains labile despite adjustments in medications. The patient felt bad after recei ving 40 mg of lisinopril with lightheadedness. We will split up the dosage to 20 mg b.i.d. and chad nue the hydrochlorothiazide. The patient is requesting cardiology consultation. We will have cardio logist evaluate the patient to assist with current treatment plan. 2. Urinary tract infection with sepsis. Stable on antibiotics orally now. We will continue with zachary Kidd. 3. Gastroesophageal reflux disease, stable. Continue with medications and diet. 4. Discharge planning hopefully in the next day or so, the patient will be stable for discharge to [facility]. Continue telemetry monitoring due to patient's ongoing labile hypertension and symptomatology. Dictated By: RASHIDA URENA MD SR/NTS Conf#: [id number] DID#: [id number] CC: JET DUMONT MD; CORNELIA KINSEY DO;*End*
[2019-02-25] MEDS: CIPROFLOXACIN 500 MG TAB PO SCH ×2 (11:09→18:07)
[2019-02-25] MEDS: hydrALAzine 20 MG INJ IV PRN (13:46)
--- NOTE | 2019-02-25 15:35 | CONS ---
Assessment/Plan Assessment/Plan Hospital Course (Demo Recall) Hypertension Sepsis secondary to UTI No ischemia nuclear cardiac perfusion study January 2019 -Patient admitted with sepsis secondary to UTI. Currently active issue labile blood pressure with episodes of elevation -Patient did have his medications adjusted, he was changed to lisinopril 20 mg p.o. twice daily starting from today and is currently on hydrochlorothiazide. He has required occasional IV hydralazine for blood pressure above 165. -Given these adjust his weight today, I will continue the current medication regimen, based on blood pressure over the next 24 hours, would consider further adjustments of medications. -Of note, patient did have a nuclear cardiac perfusion study performed earlier this month in the outpatient setting with no evidence of ischemia -Given his symptoms of shortness of breath which are intermittent, will check echocardiogram to rule out any structural heart disease or effusion. Consultation Date/Type/Reason Admit Date/Time February 15, 2019 at 05:58 Type of Consult Cardiology Reason for Consultation Hypertension Date/Time of Note DATE: 02/25/19 TIME: 15:30 Hx of Present Illness This is a 63-year-old male with past medical history of hypertension who was admitted on 02/15/2019 with sepsis secondary to UTI. Patient is improved but has been having issues with blood pressure control. He is also complaining of fatigue. He says when his blood pressure is elevated, he does give a headache. He denies any chest pain. He does complain of shortness of breath since his been here in the hospital which is intermittent. His chills have since improved. He has been having his medications titrated in house with most recently having his lisinopril divided to 20 mg twice daily starting from today. 12 point review of systems was performed with all pertinent positives and negatives mentioned above and all else is negative Past Medical History Medical History: hypertension Home Meds Active Scripts Ibuprofen* (Motrin*) 800 Mg Tab, 800 MG PO Q6H PRN for PAIN AND OR ELEVATED TEMP , #30 TAB Prov:WALLACE IRVIN MD 12/01/15 Hydrocodone/Homatropine Mbr* (Hycodan* Liq) 5 Ml Syrup, 5 ML PO Q4H PRN for COUGH, #4 OZ Prov:WALLACE IRVIN MD 12/01/15 Medications Current Medications Morphine Sulfate (morphine) 2 mg Q4H PRN IV SEVERE PAIN LEVEL 7-10; Start 02/15/19 at 09:30 Ondansetron HCl (Zofran Inj) 4 mg Q4H PRN IV NAUSEA AND/OR VOMITING; Start 02/15/19 at 09:30 Pantoprazole (Protonix Tab) 40 mg DAILY@06 PO Last administered on 02/25/19 06:54; Admin Dose 40 MG; Start 02/15/19 at 10:00 Acetaminophen (Tylenol Tab) 650 mg Q6H PRN PO MILD PAIN(1-3)OR ELEVATED TEMP Last administered on 02/23/19 05:29; Admin Dose 650 MG; Start 02/15/19 at 10:00 Hydralazine HCl (Apresoline) 5 mg Q6H PRN IV sbp>165 or dbp>95 Last administered on 02/25/19 13:46; Admin Dose 5 MG; Start 02/15/19 at 10:00 Zolpidem Tartrate (Ambien) 5 mg HS MAY REPEAT X 1 PRN PO INSOMNIA; Start 02/15/19 at 10:00 Tamsulosin HCl (Flomax) 0.4 mg HS PO Last administered on 02/24/19 21:13; Admin Dose 0.4 MG; Start 02/15/19 at 21:00 Ibuprofen (Motrin) 400 mg Q6H PRN GTB MILD PAIN LEVEL 1-3 Last administered on 02/25/19 13:47; Admin Dose 400 MG; Start 02/16/19 at 07:30 Multivitamins Therapeutic (Theragran) 1 tab DAILY PO Last administered on 02/25/19 09:00; Admin Dose 1 TAB; Start 02/18/19 at 09:00 Ciprofloxacin (Cipro) 500 mg BID@18 PO Last administered on 02/25/19 11:09; Admin Dose 500 MG; Start 02/22/19 at 18:30 Hydrochlorothiazide (Hydrochlorothiazide) 12.5 mg DAILY PO Last administered on 02/25/19 09:01; Admin Dose 12.5 MG; Start 02/24/19 at 09:00 Lisinopril (Zestril) 20 mg BID PO Last administered on 02/25/19 09:00; Admin Dose 20 MG; Start 02/25/19 at 09:00 Allergies: Coded Allergies: No Known Allergy (Unverified , 12/01/15) Social History Alcohol Use: none Smoking Status: Never smoker Exam/Review of Systems Vital Signs Vitals Vital Signs Date Temp Pulse Resp B/P (MAP) Pulse Ox O2 O2 Flow FiO2 Time Delivery Rate 02/25/19 98.0 82 18 149/84 96 Room Air 15:24 (105) Intake and Output 02/24/19 02/24/19 02/25/19 1515:00 23:00 07:00 IntakeIntake Total 1150 ml 360 ml BalanceBalance 1150 ml 360 ml Exam Exam No apparent distress, no dyspnea with speaking, at bedside Constitutional: alert, oriented Head: normocephalic Respiratory: clear to auscultation, normal air movement Cardiovascular: regular rate and rhythm (S1-S2 heard) Gastrointestinal: soft, non-tender, bowel sounds Extremities: other (No significant edema) Labs Result Diagram: 02/24/1960602/24/19606 Imaging Imaging ECG done on February 15 demonstrates sinus rhythm at 89 bpm, QRS 74 ms, nonspecific ST abnormalities Medications Medications Current Medications Morphine Sulfate (morphine) 2 mg Q4H PRN IV SEVERE PAIN LEVEL 7-10; Start 02/15/19 at 09:30 Ondansetron HCl (Zofran Inj) 4 mg Q4H PRN IV NAUSEA AND/OR VOMITING; Start 02/15/19 at 09:30 Pantoprazole (Protonix Tab) 40 mg DAILY@06 PO Last administered on 02/25/19 06:54; Admin Dose 40 MG; Start 02/15/19 at 10:00 Acetaminophen (Tylenol Tab) 650 mg Q6H PRN PO MILD PAIN(1-3)OR ELEVATED TEMP Last administered on 02/23/19at 05:29; Admin Dose 650 MG; Start 02/15/19 at 10:00 Hydralazine HCl (Apresoline) 5 mg Q6H PRN IV sbp>165 or dbp>95 Last administered on 02/25/19at 13:46; Admin Dose 5 MG; Start 02/15/19 at 10:00 Zolpidem Tartrate (Ambien) 5 mg HS MAY REPEAT X 1 PRN PO INSOMNIA; Start 02/15/19 at 10:00 Tamsulosin HCl (Flomax) 0.4 mg HS PO Last administered on 02/24/19 21:13; Admin Dose 0.4 MG; Start 02/15/19 at 21:00 Ibuprofen (Motrin) 400 mg Q6H PRN GTB MILD PAIN LEVEL 1-3 Last administered on 02/25/19 13:47; Admin Dose 400 MG; Start 02/16/19 at 07:30 Multivitamins Therapeutic (Theragran) 1 tab DAILY PO Last administered on 02/25/19 09:00; Admin Dose 1 TAB; Start 02/18/19 at 09:00 Ciprofloxacin (Cipro) 500 mg BID@06,18 PO Last administered on 02/25/19 11:09; Admin Dose 500 MG; Start 02/22/19 at 18:30 Hydrochlorothiazide (Hydrochlorothiazide) 12.5 mg DAILY PO Last administered on 02/25/19 09:01; Admin Dose 12.5 MG; Start 02/24/19 at 09:00 Lisinopril (Zestril) 20 mg BID PO Last administered on 02/25/19 09:00; Admin Dose 20 MG; Start 02/25/19 at 09:00 Juan Daniel Mayer DO February 25, 2019 15:35
--- NOTE | 2019-02-25 17:04 | RADRPT ---
Echocardiogram Report Patient Name: HOUSTON GODWINPatient ID: [id number] : 1955 (63y 7m)Study Date: 02/25/2019 3:54:07 PM Gender: MAccession #: [id number] Tech: Jory [facility] Location: [address] Ref.Physician: JUAN DANIEL MAYER Height(Cm): BSA: Weight(Kg): Quality: AdequateOrder Physician: JUAN DANIEL MAYER Account #: Procedures: Echocardiographic Report: Transthoracic echocardiogram with complete 2D, M-Mode, and doppler examination. Indications: Hypertension, and Shortness of breath. Measurements: 2D/M Mode Doppler Measurement Value Normal Range Measurement Value Normal Range LVIDd 2D 5.2 [ 4.2 - 5.8 ] cm AV Peak Nate 1.6 [ 100.0 - 170.0 ] cm/sec LVIDs 2D 3.3 [ 2.5 - 4.0 ] cm AV Peak PG 10.0 [ 2.0 - 9.0 ] mmHg LVPWd 2D 1.0 [ 0.6 - 1.0 ] cm LVOT Peak Nate 1.1 [ 70.0 - 110.0 ] cm/sec IVSd 2D 1.1 [ 0.6 - 1.0 ] cm LVOT Peak PG 5.0 [ 2.0 - 6.0 ] mmHg AoR Diam 2D 3.3 [ 2.6 - 3.4 ] cm MV E Peak Nate 0.7 [ 60.0 - 130.0 ] cm/sec EDV 2D 130.0 [ 62.0 - 150.0 ] ml MV A Peak Nate 0.9 [ 100.0 - 120.0 ] cm/sec ESV 2D 42.5 [ 21.0 - 61.0 ] ml MV E/A 0.8 [ 0.8 - 1.5 ] ratio EF 2D 67.3 [ 52.0 - 72.0 ] percent MV Decel Time 155 [ 104 - 258 ] msec LA Dimen 2D 3.6 [ 3.0 - 4.0 ] cm Lat E` Nate 0.1 [ 10.0 - 15.0 ] cm/sec Lateral E/E` 8.4 [ 1.0 - 2.0 ] ratio MV E/A 0.8 [ 0.8 - 1.5 ] ratio TR Peak Nate 2.8 [ 100.0 - 280.0 ] cm/sec TR Peak PG 31.0 mmHg RVSP 34.0 [ 10.0 - 36.0 ] mmHg Findings: Left Ventricle: Normal left ventricular systolic function. Normal left ventricular cavity size. Left ventricular wall thickness upper limits of normal. Ejection fraction is visually estimated at 65 %. Tissue Doppler/Mitral Doppler indices are consistent with impaired relaxation (Stage I diastolic dysfunction). Right Ventricle: Normal right ventricular size. Normal right ventricular systolic function. Left Atrium: The left atrium is normal in size. Right Atrium: The right atrium is normal in size. Mitral Valve: Mild mitral leaflet calcification. Mild mitral annular calcification. Trace mitral regurgitation. Aortic Valve: No hemodynamically significant aortic stenosis by doppler. Aortic cusps appear mildly calcified. Trace aortic valve regurgitation. Tricuspid Valve: Normal appearance and function of the tricuspid valve with trace physiologic regurgitation. The estimated Peak RVSP is 34 mmHg. Pulmonic Valve: Normal pulmonic valve appearance. Pericardium: Normal pericardium with no significant pericardial effusion. Aorta: Normal aortic root. IVC: Normal size and normal respiratory collapse consistent with normal right atrial pressure. Conclusions: Normal left ventricular systolic function. Normal left ventricular cavity size. Left ventricular wall thickness upper limits of normal. Ejection fraction is visually estimated at 65 %. Tissue Doppler/Mitral Doppler indices are consistent with impaired relaxation (Stage I diastolic dysfunction). Normal right ventricular size. Normal right ventricular systolic function. The left atrium is normal in size. The right atrium is normal in size. No significant valvular stenosis or regurgitation seen. Normal pericardium with no significant pericardial effusion. Electronically Signed By: Juan Daniel Mayer 2019-02-25 17:03:43 PDT
[2019-02-25] MEDS: ACETAMINOPHEN 325 MG TAB PO PRN (18:06)
[2019-02-25] MEDS: TAMSULOSIN (SR) 0.4 MG CAP PO SCH (21:29)
[2019-02-26 00:22] VITALS: PULSE 59
[2019-02-26 04:21] VITALS: PULSE 54
[2019-02-26 04:23] VITALS: BP 119/74; PULSE 65; RESP 16
[2019-02-26] MEDS: CIPROFLOXACIN 500 MG TAB PO SCH (05:47)
[2019-02-26] MEDS: PANTOPRAZOLE (EC) 40 MG TAB PO SCH (05:47)
[2019-02-26 08:00] VITALS: BP 135/80; PULSE 77; RESP 20
[2019-02-26] MEDS: HYDROCHLOROTHIAZIDE 12.5 MG CAP PO SCH (08:09)
[2019-02-26] MEDS: LISINOPRIL 20 MG TAB PO SCH (08:09)
[2019-02-26] MEDS: MULTIVITAMINS THERAPEUTIC TAB PO SCH (08:09)
[2019-02-26 08:20] VITALS: PULSE 63
--- NOTE | 2019-02-26 08:22 | PDOCDIS ---
Discharge Instructions DIAGNOSIS Discharge Diagnosis UTI with sepsis; headache/ htn CONDITION [id number] Patient Condition: [id number] Good HOME CARE INSTRUCTIONS: [id number] Diet Instructions: [id number] FOLLOW UP/APPOINTMENTS Follow-up Plan follow up with Dr Morales as scheduled RASHIDA MORALES MD- February 26, 2019 08:22
[2019-02-26] MEDS ORDERED: LISI-471 PO (08:26)
[2019-02-26] MEDS ORDERED: TAMS-14 PO (08:26)
--- NOTE | 2019-02-26 10:27 | PN ---
DATE: 02/26/2019 SUBJECTIVE: The patient is feeling well, no headache, no other complaints. OBJECTIVE: VITAL SIGNS: Temperature 98.3, pulse 77, respirations 20, blood pressure 135/80, oxygen saturation 9 7% on room air. GENERAL: Well-developed, well-nourished male, in no acute distress. LUNGS: Clear to auscultation bilaterally. HEART: Regular rate and rhythm. ABDOMEN: Soft, nontender. NEUROLOGIC: Nonfocal. LABORATORY DATA: Sodium 144, potassium 4.6, chloride 110, bicarbonate 26, BUN of 19, creatinine 0.73 , blood sugar 100. White blood cell count 8.8, hemoglobin 12.9, hematocrit 38.4, platelets of 287. IMAGING STUDIES: Echocardiogram shows normal ejection fraction with stage I diastolic dysfunction. ASSESSMENT AND PLAN: 1. Urinary tract infection with sepsis. The patient has completed antibiotics and no need for antib iotics after discharge. The patient has had 12 days of antibiotics, which is adequate for the infect ion. 2. Hypertension, improved. Appreciate Dr. Mayer's input into this case. The patient will be disch arged home on lisinopril 20 b.i.d. along with hydrochlorothiazide 12.5 mg and p.r.n. Hydralazine 10 m g q.6 hours p.r.n., systolic blood pressure greater than 165 or diastolic greater than 95. 3. Gastroesophageal reflux disease. We will continue patient on proton pump inhibitor. 4. Headache, improved with controlled blood pressure. 5. Discharge planning, the patient is stable for discharge to home and the patient already has a [facility] appointment with [place] and will keep that appointment. Dictated By: RASHIDA URENA MD SR/NTS Conf#: [id number] DID#: [id number] CC: JET DUMONT MD; CORNELIA MAYER DO;*EndCC*
[2019-02-26] MEDS ORDERED: HYDR-3670 PO ×2 (10:34→10:35)
== END 2019-02-26 11:10 | disposition home or self-care (01) | DRG 872 ==
LOC: E/R 03:46 → 6WM 05:48 → OBSVTOIN 05:58
PROVIDERS: ADMIT Internal Medicine; ATTEND Internal Medicine
DX: A41.51 Sepsis due to Escherichia coli [E. coli] (principal); N39.0 Urinary tract infection, site not specified; Q05.9 Spina bifida, unspecified; I10 Essential (primary) hypertension; K21.9 Gastro-esophageal reflux disease without esophagitis; N40.0 Benign prostatic hyperplasia without lower urinary tract symptoms; R51 Headache; E87.6 Hypokalemia
CPT/HCPCS: 36415; 70450; 71045; 80048; 80053; 81001; 81003; 83605; 83735; 84484; 85025; 85610; 85651; 85730; 87086; 93005; 93306; 97162; 97530; G0378; J0360; J1940; J2543; J7030